=== PATIENT | female | born 1990 | race Native Hawaiian/Other Pacific Islander ===

== ENCOUNTER 2018-12-10 21:12 | Emergency (ER) | payer OTHER ==
[~2018-12-10] VITALS: Ht 170.2 cm; Wt 85.7 kg
[2018-12-10 22:38] LABS: PLATELET COUNT 200 K/uL (152-353)
[2018-12-10 22:45] LABS: POTASSIUM 3.5 mmol/L (3.6-5.2)
[2018-12-10 23:50] VITALS: BP 125/80; TEMP 98.5
== END 2018-12-10 23:52 | disposition home or self-care (01) ==
LOC: ED 21:12
PROVIDERS: Emergency Medicine
DX: O20.9 Hemorrhage in early pregnancy, unspecified (principal)
CPT/HCPCS: 36415; 80053; 81000; 84702; 85027; 99284